=== PATIENT | female | born 1990 | race Caucasian/White ===

== ENCOUNTER 2017-06-19 21:07 | Emergency (ER) | payer OTHER ==
[~2017-06-19] VITALS: Ht 162.6 cm; Wt 65.9 kg
[~2017-06-19 21:07] MED LIST: PARO40TA47 PO
[2017-06-19 21:21] VITALS: BP 145/80; RESP 20; O2SAT 99
--- NOTE | 2017-06-19 22:37 | ED.REPORT ---
HPI-Ear Pain/Problem/FB Date of Service Jun 19, 2017 ED Provider: The pt is a 26 y/o female with a hx of asthma and IV heroin use who presents to the ED complaining of worsening right ear pain, onset 3 days ago. She states it feels like her ears are plugged. She also reports sore throat. Nursing Notes Stated Complaint: EAR INFECTION Chief Complaint: ENT & Mouth Nursing Notes Reviewed: Yes Allergies: Coded Allergies: No Known Allergies (Verified Allergy, Unknown, 11/25/14) Scheduled Paroxetine (Paxil) 40 Mg Tablet 40 MG PO HS General Time Seen by MD: 22:59 Chief Complaint Other (right earache ) Hx Obtained From: Patient Arrived By: Walk-in Onset Occurred: 3 days ago Symptom Duration: Since onset Location: : Inner ear Quality: Painful Severity: Current: Severe Severity: Maximum: Severe Recent Healthcare: No recent doctor visit Past Medical History Past Medical History Methamphetamine and Opioid addiction Reports: Asthma Past Surgical History Reports: Tonsillectomy Family History Reviewed, not relevant Smoking History Current Every Day Smoker Social History Alcohol Use: Denies alcohol use Drug Use: Meth, Other Ambulatory Status Independent Review of Systems Ears / Nose / Throat: Reports: Earache right, Sore throat Complete sys rev & neg: except as marked. Physical Exam Initial Vital Signs Vital Signs (First) Date Time Temp Pulse Resp B/P Pulse Ox O2 Delivery O2 Flow Rate FiO2 06/19/17 21:21 37.2 128 20 145/80 99 Room Air Initial VS: Reviewed Head / Eyes: Atraumatic, Normocephalic Respiratory: Breath sounds normal, Clear to auscultation, No respiratory distress Cardiovascular: Regular rate & rhythm, Heart sounds normal, Intact distal pulses Abdomen / GI: Soft, Non-tender, No guarding, No rebound, No distention Extremities: Vascular intact, Neuro intact, No swelling, No tenderness Skin: Warm, Dry, No cyanosis Neurologic: Alert, Oriented, Nonfocal General/Constitutional: Awake, Alert, Cooperative Distress / Hydration: Positive: Distress moderate ENT: Atraumatic, Airway patent, Pharynx NL Pharynx / Tonsils / Uvula: Positive: Tonsillar exudate L, Tonsillar exudate R Right Ear / Mastoid: Positive: Tympanic membrane bulging, Tympanic membrane red , Negative: Tympanic memb perforated Bilateral tonsillar exudate without asymmetry or abscess. Right tympanic membrane, in addition to being erythematous with a purulent effusion as some increased swelling, and vascularity at around 12:00, as well as opacity, which is only present up in this quadrant. Re-Eval/Medical Decision Med Decision/Clinical Course In addition to having an ear infection, there is somewhat of an abnormal appearance which could be consistent with cholesteatoma. I recommended that she take the antibiotics as prescribed, but stressed the importance of following up even if symptoms improve to make sure her exam is completely normal. If she continues to have a mass in the upper quadrant of her tympanic membrane, ENT referral should be considered. I considered strep throat with her bilateral exudative tonsillitis/pharyngitis, but as she is artery going to be on antibiotic, this will cover any potential bacterial infection Re-Evaluation/Progress : Time of Eval: 23:10 Re-Evaluation/Progress Note: Discussed diagnosis and plan to discharge. Pt understands and agrees with the plan. F/U instruction and RTER warning given. All questions addressed. Counseled Regarding: Diagnosis, Need for follow-up, When/why to return to ED Discharge & Departure Primary Impression: Infection of right ear Additional Impressions: Pharyngitis Pharyngitis/tonsillitis etiology: unspecified etiology Qualified Code: J02.9 - Acute pharyngitis, unspecified Tachycardia Disposition: Home Discharge Condition All VS Reviewed: Yes Condition: Stable Patient Instructions: Ear Infection (ED) Additional Instructions: Thank you for entrusting us with your care today. You have a right ear infection. Take the antibiotics and pain medication as prescribed. Follow up with your PCP on Wednesday. If your symptoms are worsening despite antibiotics and pain medicine , please return to the ER. Your ear exam is abnormal today and I am concerned for something called a cholesteatoma. It is very important for you to follow up on Wednesday, and you may need to see an ENT doctor in the near future if your infection does not resolve with the treatment above. Referrals: [facility] (PCP) Scribe Attestation Portions of this note were transcribed by Krystina Mckeon. I,, personally performed the history,physical exam and medical decision-making;I reviewed and confirmed the accuracy of the information in the transcribed note. Signed by Gely Jesus. 06/19/17 J Carlos Calvillo DO Jun 19, 2017 22:37 Krystina Mckeon Jun 19, 2017 23:03
[2017-06-19] MEDS ORDERED: _HYDROcodone/APAP 5-325 mg Tablet PO PRN (23:10)
[2017-06-19] MEDS ORDERED: HYDROcodone-APAP 5-325 mg Tablet PO ONE (23:10)
[2017-06-20] MEDS ORDERED: _Amoxicillin 500 mg Capsule PO SCH (08:30)
== END 2017-06-19 23:44 | disposition home or self-care (01) ==
LOC: SED 21:07
DX: H66.91 Otitis media, unspecified, right ear (principal); J02.9 Acute pharyngitis, unspecified; R00.0 Tachycardia, unspecified; F17.200 Nicotine dependence, unspecified, uncomplicated; J45.909 Unspecified asthma, uncomplicated; F15.20 Other stimulant dependence, uncomplicated; F11.20 Opioid dependence, uncomplicated